=== PATIENT | female | born 1950 | race African-American/Black ===

== ENCOUNTER 2016-07-25 12:08 | Inpatient (IN) | payer OTHER ==
[~2016-07-25] VITALS: Ht 149.9 cm; Wt 106.3 kg
[2016-07-25 12:53] LABS: BASOPHIL % 0.5 % (0-2); PLATELET COUNT 196 x10^3mcL (130-400)
[2016-07-25 12:56] LABS: RED CELL DISTRIBUTION WIDTH 18.3 % (11.5-14.5)
[2016-07-25 13:10] LABS: ALBUMIN 3.7 g/dL (3.4-5.0); BILIRUBIN TOTAL 0.31 mg/dL (0.20-1.00); CALCIUM 8.1 mg/dL (8.5-10.1); CARBON DIOXIDE 26.6 mmol/L (21-32); CREATININE SERUM 3.9 mg/dL (0.6-1.0)
[2016-07-25 13:15] LABS: POTASSIUM SERUM 5.6 mmol/L (3.5-5.1)
[2016-07-25] MEDS ORDERED: TOPAMAX50 M1 PO (13:32)
[2016-07-25] MEDS ORDERED: DIPHENHYDRAMINE50 M3 PO (13:33)
[2016-07-25] MEDS ORDERED: NEURONTIN600 MG PO ×2 (13:34→13:35)
[2016-07-25] MEDS ORDERED: BUSPIRONE HCL30 MG PO (13:34)
[2016-07-25] MEDS ORDERED: TOPCARE 8 HOUR650 MG PO (13:36)
[2016-07-25] MEDS ORDERED: LANTUS SOLOS100 U/M1 SQ (13:37)
[2016-07-25] MEDS ORDERED: LISINOPRIL10 MG PO (13:37)
[2016-07-25] MEDS ORDERED: RELION HUMUL100 U/M2 SC ×3 (13:38→13:40)
[2016-07-25] MEDS ORDERED: SIMVASTATIN40 M1 PO (13:39)
[2016-07-25] MEDS ORDERED: FERROUS SULFAT325 M2 PO (13:39)
[2016-07-25] MEDS ORDERED: COLACE100 MG PO (13:39)
[2016-07-25] MEDS ORDERED: AKWA TEARS15 ML OU (13:41)
[2016-07-25 13:45] LABS: UA SPECIFIC GRAVITY 1.025 (1.005-1.035); microscopic required? YES; urine erythrocyte NEGATIVE (NEGATIVE)
[2016-07-25 13:55] LABS: AMPHETAMINE QUAL UR NONE DETECTED (NEG <=1000)
[2016-07-25 15:32] VITALS: BP 98/59
[2016-07-25 16:15] VITALS: BP 98/59
[2016-07-25 16:16] LABS: CHOLESTEROL/HDL RATIO 3.1; MAGNESIUM 2.2 mg/dL (1.8-2.4)
[2016-07-25 18:12] LABS: CALCIUM 9.5 mg/dL (8.5-10.1); CARBON DIOXIDE 25.1 mmol/L (21-32); CREATININE SERUM 3.5 mg/dL (0.6-1.0); POTASSIUM SERUM 5.2 mmol/L (3.5-5.1)
[2016-07-25 21:27] VITALS: BP 100/74
[2016-07-26 05:52] VITALS: BP 123/73
[2016-07-26 07:00] LABS: CALCIUM 8.2 mg/dL (8.5-10.1); CARBON DIOXIDE 30.4 mmol/L (21-32); CREATININE SERUM 1.9 mg/dL (0.6-1.0)
[2016-07-26 07:03] LABS: BASOPHIL % 0.3 % (0-2); PLATELET COUNT 160 x10^3mcL (130-400)
[2016-07-26 07:06] LABS: RED CELL DISTRIBUTION WIDTH 17.9 % (11.5-14.5)
[2016-07-26 07:07] LABS: rbc morphology (normal/abnorm) ABNORMAL (NORMAL)
[2016-07-26 07:30] VITALS: BP 112/66
[2016-07-26 17:00] VITALS: BP 140/67
[2016-07-26 20:56] VITALS: BP 113/57
[2016-07-27 09:40] VITALS: BP 133/70
[2016-07-27 13:41] VITALS: Ht 149.9 cm; Wt 106.3 kg
[2016-07-27 14:31] VITALS: BP 133/70
== END 2016-07-27 17:17 | disposition other institution (70) | DRG 189 ==
LOC: ED 12:08 → DU 13:31
PROVIDERS: Emergency Medicine; Internal Medicine Nephrology; ADMIT Internal Medicine
DX: J96.01 Acute respiratory failure with hypoxia (principal); N17.0 Acute kidney failure with tubular necrosis; G93.41 Metabolic encephalopathy; E87.4 Mixed disorder of acid-base balance; N39.0 Urinary tract infection, site not specified; I95.9 Hypotension, unspecified; E87.5 Hyperkalemia; I25.10 Atherosclerotic heart disease of native coronary artery without angina pectoris; I12.9 Hypertensive chronic kidney disease with stage 1 through stage 4 chronic kidney disease, or unspecified chronic kidney disease; N18.3 Chronic kidney disease, stage 3 (moderate); E11.65 Type 2 diabetes mellitus with hyperglycemia; E11.21 Type 2 diabetes mellitus with diabetic nephropathy; E66.9 Obesity, unspecified; Z79.4 Long term (current) use of insulin; Z87.891 Personal history of nicotine dependence
CPT/HCPCS: 36600; 80307; 82962; 83880; 94150; A9500; J1644; J1815; J1940; J2270; J2543; J2785; J3490; J7030; J7613; J7620; Q0092

== ENCOUNTER 2018-10-22 11:05 | Inpatient (IN) | payer OTHER ==
[~2018-10-22] VITALS: Ht 149.9 cm; Wt 110.2 kg
[~2018-10-22 11:05] MED LIST: AKWA TEARS15 ML OU; BUSPIRONE HCL30 MG PO; COLACE100 MG PO; DIPHENHYDRAMINE50 M3 PO; FERROUS SULFAT325 M2 PO; LANTUS SOLOS100 U/M1 SQ; LISINOPRIL10 MG PO; NEURONTIN600 MG PO; RELION HUMUL100 U/M2 SC; SIMVASTATIN40 M1 PO; TOPAMAX50 M1 PO; TOPCARE 8 HOUR650 MG PO
[2018-10-22 11:24] VITALS: Ht 149.9 cm; Wt 110.2 kg
--- NOTE | 2018-10-22 11:28 | NUR ---
PT BROUGHT IN BY [facility] FROM [facility] WITH C/O N/V/D X6 DAYS. AT BEDSIDE PT IS AAOX4. RESPS E/U. SKIN IS PINK AND WARM. PT PLACED ON MONITOR BED RAIL UP X1 FOR SAFETY. PT ORIENTED TO ROOM, USE OF CALL COLLIER, AND BED IN LOWEST POSITION. PT CALM AND COOPERATIVE. [facility] GUARDS AT BEDSIDE.
--- NOTE | 2018-10-22 12:09 | NUR ---
PT REPORTS IV SITE BURNING. AREA SURROUNDING SITE IS HARD. DR. LUI MADE AWARE. HE WILL TRY ANOTHER IV WITH ASSISTED ULTRASOUND.
--- NOTE | 2018-10-22 12:30 | NUR ---
DR. LUI AT BEDSIDE ATTEMPTING SECOND IV. PT CALM AND COOPERATIVE. RESPS E/U, SKIN IS PINK, WARM AND DRY.
--- NOTE | 2018-10-22 12:35 | NUR ---
IV LINE SUCCESSFUL. PT TOLERATED PROCEDURE WELL. RESPS E/U, SKIN PINK, WARM AND DRY.
[2018-10-22 12:58] LABS: BASOPHIL % 0.1 % (0-2); PLATELET COUNT 208 x10^3mcL (130-400); RED CELL DISTRIBUTION WIDTH 19.8 % (11.5-14.5)
[2018-10-22 13:02] LABS: BILIRUBIN TOTAL 0.25 mg/dL (0.20-1.00); CALCIUM 8.5 mg/dL (8.5-10.1); CARBON DIOXIDE 17.8 mmol/L (21-32); TOTAL PROTEIN, SERUM 7.4 g/dL (6.4-8.2)
[2018-10-22 13:04] LABS: ALBUMIN 3.1 g/dL (3.4-5.0); CREATININE SERUM 6.5 mg/dL (0.6-1.0)
[2018-10-22 13:05] LABS: CK-MB 1.9 ng/mL (0-3.6)
--- NOTE | 2018-10-22 13:06 | NUR ---
PER DR. SANIA GUTIERREZ TO GIVE FENTANYL.
--- NOTE | 2018-10-22 13:08 | NUR ---
MEDICATED PT PER MD ORDERS. PT VERBALIZES UNDERSTANDING OF MEDICATION. SEE EMAR FOR DETAILS.
--- NOTE | 2018-10-22 14:10 | NUR ---
PT PLACED IN [place] FOR LOW BP. PT AAOX4 WITH NO SIGNS OF DISTRESS.
--- NOTE | 2018-10-22 14:35 | NUR ---
PT REFUSED STRAIGHT CATH. PT ASSISTED WITH BEDPAN FOR URINE SAMPLE.
[2018-10-22] MEDS ORDERED: ALENDRONATE SOD70 M2 PO (14:41)
[2018-10-22] MEDS ORDERED: CALCIUM ACETAT667 M3 PO (14:42)
[2018-10-22] MEDS ORDERED: BUSPIRONE HCL10 MG PO (14:42)
[2018-10-22] MEDS ORDERED: THO50 PO (14:43)
[2018-10-22] MEDS ORDERED: ENFAMIL D-V400 IU/ML PO (14:44)
[2018-10-22] MEDS ORDERED: PENNSAID2 GM TOP (14:45)
[2018-10-22] MEDS ORDERED: COLACE100 MG PO (14:46)
[2018-10-22] MEDS ORDERED: GABAPENTIN600 M1 PO (14:47)
[2018-10-22] MEDS ORDERED: GABAPENTIN800 M1 PO (14:47)
[2018-10-22] MEDS ORDERED: ASSORTED FRUIT G4 GM PO (14:48)
[2018-10-22] MEDS ORDERED: LANTUS SOLOS100 U/M1 SQ (14:49)
[2018-10-22 14:50] LABS: microscopic required? YES; urine erythrocyte 1+ (NEGATIVE)
[2018-10-22] MEDS ORDERED: AFREZZA12 UNIT SQ (14:51)
[2018-10-22] MEDS ORDERED: AFREZZA12 UNIT IH (14:51)
[2018-10-22] MEDS ORDERED: RELION HUMUL100 U/M2 IJ ×3 (14:55→14:56)
[2018-10-22] MEDS ORDERED: LIDOCAINE PAIN1 EACH TOP (14:57)
[2018-10-22] MEDS ORDERED: ZESTRIL20 MG PO (14:58)
[2018-10-22] MEDS ORDERED: TOPROL XL25 MG PO (14:58)
--- NOTE | 2018-10-22 14:59 | NUR ---
HAND-OFF REPORT TO JOYCE WALTON FROM TELEMETRY TO ASSUME CARE.
[2018-10-22] MEDS ORDERED: LUBRICANT EYE1 EACH OS (15:00)
[2018-10-22] MEDS ORDERED: REPLENS1 CRE PO (15:01)
[2018-10-22] MEDS ORDERED: SIMVASTATIN40 M1 PO (15:02)
[2018-10-22] MEDS ORDERED: ZOLOFT100 MG PO (15:02)
--- NOTE | 2018-10-22 15:22 | NUR ---
RECEIVED PT VIA [facility] FROM E/D, ACCOMPANIED BY RN, TRANSPORTER, AND 2 [facility] GUARDS. PT A/A/O X 4, CALM, COOPERATIVE; WEARS GLASSES (NOT W/ PT). ON TELE # 5, HR 74, DENIES CHEST PAIN OR DISCOMFORT AT THIS TIME. SHAHID RADIAL AND PEDAL PULSES PRESENT, BLE +1 NON-PITTING EDEMA, CAP REFILL < 3 SECS, SCD BY BEDSIDE. LUNGS CTAB, CHEST RISING EVENLY, 2LNC, 99%, NO ACUTE RESPIRATORY DISTRESS NOTED. ABD SOFT, DISTENDED, HYPOACTIVE BOWEL SOUNDS X 4 QUADS, LAST BM 10/22/18, DIARRHEA. INCONTINENT OF BLADDER, DENIES DYSURIA. GENERALIZED WEAKNESS, ABLE TO AMBULATE W/ ASSIST; USES W/C, CANE, OR WALKER @ PRSION; FALL RISK PROTOCOL IN PLACE. C/O CHRONIC, CONSTANT ACHING PAIN TO BLE AND BACK 8/10 EXACERBATED BY MOVEMENT AND TWISTING, RELIEVED BY REST AND PAIN MEDICATIONS. IV SITE RAC 22G, CDI. ORIENTED PT TO ROOM, BED CONTROLS, CALL LIGHT SYSTEM. SIDE RAILS UP X 2, BED IN LOW POSITION. JOYCE JHA, BY BEDSIDE. PT HAS LOW BP READING OF 66/31, MAP 43, DENIES DIZZINESS AT THIS TIME.
--- NOTE | 2018-10-22 15:38 | NUR ---
DR FRASER MADE AWARE OF BP- 74/47 -MAP -56 ON RT ARM AND 74/28- MAP-43 ON LEFT ARM. PATIENT ASSESSED AND SHE DENIES DIZZINESS OR OTHER DISCOMFORT. RECEIVED ORDER FOR 250ML NS BOLUS. ORDER CARRIED OUT BY ATTENDING NURSE ABHIJEET. WILL CONTINUE TO MONITOR PATIENT AND MAINTAIN SAFETY.
--- NOTE | 2018-10-22 15:40 | NUR ---
DR FRASER NOTIFIED OF BP- 74/47 -MAP -56 ON RT ARM AND 74/28- MAP-43 ON LEFT ARM. PT DENIES ANY DIZZINESS, DISTRESS, OR SOB. RECEIVED ORDER FOR 250ML NS BOLUS. ORDER CARRIED OUT, WILL CONTINUE TO MONITOR PATIENT AND MAINTAIN SAFETY. CHARGE AWARE.
--- NOTE | 2018-10-22 16:07 | NUR ---
DR FRASER MADE AWARE ABOUT BP-66/31, MAP-43 AFTER 250ML NS BOLUS GIVEN. RECEIVED ORDER FOR ADDITIONAL 250ML NS BOLUS. ORDER CARRIED OUT. WILL CONTINUE TO MONITOR PATIENT AND MAINTAIN SAFETY.
--- NOTE | 2018-10-22 16:10 | NUR ---
DR FRASER NOTIFIED ABOUT BP-66/31, MAP-43 AFTER 250ML NS BOLUS GIVEN. RECEIVED ORDER FOR ADDITIONAL 250ML NS BOLUS. ORDER CARRIED OUT. WILL CONTINUE TO MONITOR PATIENT AND MAINTAIN SAFETY. NO DISTRESS NOTED AT TIME.
[2018-10-22 16:23] VITALS: BP 66/31
--- NOTE | 2018-10-22 16:56 | NUR ---
DR FRASER NOTIFIED OF BP 75/36, 49 MAP, 73 H, RR 16. NEW ORDER TO TRANSFER PT TO ICU, WILL CARRY OUT. NO DISTRESS NOTED
--- NOTE | 2018-10-22 17:00 | NUR ---
REPORTED TO DR FRASER PT'S LOW BP OF 75/36 W/ MAP 49 S/P 2ND BOLUS OF 250 ML NS, PT DENIES DIZZINESS AT THIS TIME; GAVE ORDER TO TRANSFER TO ICU; ORDER NOTED AND CARRIED OUT.
[2018-10-22 17:01] VITALS: BP 75/36
--- NOTE | 2018-10-22 17:20 | NUR ---
RECIEVED PT FROM [facility] ACCOMPANIED BY 3 RNS AND 2 POLICE OFFICERS. RECIEVED PT AAOX4. ABLE TO FOLLOW COMMANDS. RESPONDS TO VERBAL, TACTILE, AND PAINFUL STIMULUS. DENIES HEADACHE. PUPILS 3MM IN SIZE AND BRISK B/E. TRACHEA MIDLINE. NO JVD PRESENT. ON ROOM AIR. RESPS EVEN AND UNLABORED. DIM BREATH SOUNDS AUSCULTATED. SYMMETRICAL CHEST WALL EXPANSION NOTED. PALPABLE PULSES X4. CAP REFILL <3 SEC TO BUE AND BLE. SKIN IS WARM/DRY TO TOUCH, BROWN IN COLOR. +1 TRACE EDEMA NOTED TO BLE. PIV TO RAC INTACT, PORT PATENT, DRESSING CDI. VS: HR = 75, BP = 124/62 (73), RR = 13, O2 = 97%, TEMP = 97.5. ABD IS DISTENDED AND NONTENDER. ACTIVE BOWEL SOUNDS X4. NO BM AT THIS TIME. VOIDS FREELY VIA BEDPAN. URINE IS YELLOW IN COLOR. POOR OUTPUT NOTED. NO VAGINAL BLEEDING OR DISCHARGE NOTED. GENERALIZED WEAKNESS NOTED. JOINTS INTACT. NO CONTRACTURES. DRY SKIN NOTED TO RLE.
--- NOTE | 2018-10-22 17:20 | NUR ---
PT TRANSFERRED TO ICU BED 2, REPORT GIVEN TO JOYCE PAGE. ALL CARES AND ORDERS F/U AND CARE ENDORSED.
--- NOTE | 2018-10-22 19:00 | NUR ---
RECIEVED PT FROM AM NURSE. PT IS A/O x4. ON TELE #2, SR. HR IN THE 70S. DENIES ANY CHEST PAIN OR PRESSURE. PULSES ARE PRESENT. TRACE EDEMA ON BLE. LUNGS CLEAR IN ALL FEILDS. ON RA, DENIES ANY SOB. EQUAL CHEST RISE AND FALL. NO SIGN OF RESP DISTRESS. BOWEL SOUNDS PRESENT x4. DENIES ANY ABD PAIN OR DISTRESS. FOLY BAG IN PLACE. BELOW THE BLADDER, DRAINING BY GRAVITY. NO DEPENDENT LOOP OR KINK NOTED. CLOUDY, LIGHT YELLOW URINE NOTED IN ROMAN BAG. DENIES ANY PAIN AT THIS TIME. SALINE LOCKED ON RAC, INTACT AND CLEAN. CUFF ON L ANKLE, SKIN WNL AT SITE. [facility] OFFICER AT BEDSIDE. BED AT LOWEST SETTING. CALL LIGHT WITHIN REACH. WILL CONTIUE TO CÉSAR.
[2018-10-22 19:30] VITALS: BP 115/57
[2018-10-23] VITALS (7 sets, daily range): BP systolic 89–111; BP diastolic 38–56
--- NOTE | 2018-10-23 00:43 | NUR ---
PT IS RESTING IN BED. DENIES ANY LIANG, DIZZINESS, OR LIGHT HEADEDNESS. PT ON TELE #2, NSR. DENIES ANY CHEST PAIN OR PRESSURE. PULSES ARE PRESENT. TRACE BLE EDEMA. PT WAS O2 LEVELS STARTED TO DCREASE FROM MID 90S TO LOW 80S. INSTRUCT PT TO TAKE DEEP BREATHING AND SPO2 INCREASED TO LOW 90S-HIGH 80S. PLACED ON 1.5L NC, SPO2 INCREASED TO 98%. PT DENIES ANY SOB. EQUAL CHEST RISE AND FALL. NO SIGN OF RESP DISTRESS. IV ON RAC, INTACT AND PATENT. SODIUM BICARB RUNNING AT 75ML/HR. BOWEL SOUNDS PRESENT x4. DENIES ANY ABD PAIN OR DISTRESS. ROMAN BAG BELOW THE BLADDER, DRAINING BY GRAVITY. CLOUDY, LIGHT YELLOW URINE NOTED IN BAG. NO DEPENDENT LOOP OR KINK IN TUBING. BED IS AT LOWEST SETTING. CALL LIGHT WITHIN REACH. 2 [facility] OFFICERS AT BEDSIDE. WILL CONTIUE TO MONITOR.
--- NOTE | 2018-10-23 02:00 | NUR ---
PT B/P IS STARTING TO TREND LOW. B/P IS NOW 89/50 (62) HR 86. PT ON 1.5L NC SPO2 AT 99%. PT DENIES ANY LIANG OR DIZZINESS. CHARGE NURSE TANJA AT BEDSIDE. WILL CONTINUE TO MONITOR.
--- NOTE | 2018-10-23 02:44 | NUR ---
CALLED DR. FRASER FOR ORDERS FOR PATIENT IN REGARD TO LOW BLOOD PRESSURE. WAS MUMBLING, AND WAS UNABLE TO UNDERSTAND, ASKED TO CLARIFY TWICE AND IT APPEARED IF HE GOT FRUSTRATED AND HUNG UP ON ME.
--- NOTE | 2018-10-23 03:33 | NUR ---
Spoke to regarding low pressure. New order obtained to start Levophed if needed to keep SBP >90. New order noted and carried out. Will continue to monitor.
--- NOTE | 2018-10-23 05:46 | NUR ---
PT IS RESTING IN BED. IN NO DISTRESS. BED LINEN CHANGED, WIPED DOWN AND ROMAN CARE PROVIDED. PT ABLE TO ASSIST WITH MORNING ADLS. NEW GOWN WAS GIVEN. PT TOLERATED ACTIVIY WELL. NO DISTRESS NOTED. ON 1.5L NC. NO ACUTE EVENT OCCURED. BED IS AT LOWEST SETTING. CALL LIGHT WITHIN REACH. [facility] OFFICERS AT BEDSIDE. WILL ENDORSE TO AM NURSE.
[2018-10-23 06:01] LABS: ALBUMIN 2.4 g/dL (3.4-5.0); ALKALINE PHOSPHATASE 70 U/L (46-116); ALT/SGPT 32 U/L (14-59); AST/SGOT 36 U/L (15-37); BILIRUBIN TOTAL 0.17 mg/dL (0.20-1.00); CALCIUM 7.8 mg/dL (8.5-10.1); CARBON DIOXIDE 18.1 mmol/L (21-32); CHLORIDE SERUM 108 mmol/L (98-107); GFR1 11 mL/min; GLUCOSE SERUM 115 mg/dL (74-106); PHOSPHOROUS 5.9 mg/dL (2.5-4.9); POTASSIUM SERUM 4.2 mmol/L (3.5-5.1); SODIUM SERUM 139 mmol/L (136-145)
[2018-10-23 06:02] LABS: CREATININE SERUM 4.2 mg/dL (0.6-1.0)
--- NOTE | 2018-10-23 07:20 | NUR ---
RECEIVED PATIENT FROM QUALITY CONTROL OPERATOR NURSE. PATIENT IS RESTING WITH BOTH EYES CLOSED, AROUSABLE. TELE READING SR HR 72. ON 1.5L VIA NC, RESP E/U, O2 SAT 96%. ROMAN CATHETER NOTED, DRAINING PALE YELLOW URINE TO GRAVITY. [facility] PATIENT WITH 2 GUARDS AT BEDSIDE. FALL PREC IN PLACE. IV NOTED TO RAC, IVF INFUSING WELL ORDERED, NO S/S ERYTHEMA AT SITE. WILL CONTINUE PLAN OF CARE.
--- NOTE | 2018-10-23 09:44 | NUR ---
PATIENT HAD LARGE SOFT BM AT THIS TIME VIA BEDPAN.
--- NOTE | 2018-10-23 10:15 | NUR ---
DR FRASER AT BEDSIDE TO UPDATE PATIENT ON PLAN OF CARE. ALL QUESTIONS AND CONCERNS ADDRESSED AT THIS TIME.
--- NOTE | 2018-10-23 14:16 | NUR ---
PROVIDED PATIENT WITH OJ AT THIS TIME.
--- NOTE | 2018-10-23 14:29 | NUR ---
REPORT CALLED AND GIVEN TO RENE ON MST. PATIENT TO BE TRANSFERRED. AWAKE, ALERT AND ORIENTED. ON 1.5L NC, RESP E/U. NO C/O PAIN OR DISCOMFORT. [facility] GUARDS AT BEDSIDE.
--- NOTE | 2018-10-23 15:04 | NUR ---
PATIENT TRANSFERRED AT THIS TIME TO [facility]. ALL PERSONAL BELONGINGS TAKEN WITH PATIENT.
--- NOTE | 2018-10-23 15:05 | NUR ---
RECEIVED PATIENT FROM ICU VIA [facility] WITH JOYCE WONG. PATIENT IS A/OX4, NO COMPLAINTS OF PAIN AT THIS TIME. V/S STABLE. INSTRUCTED PATIENT FIELD CARE MANAGER LIGHT USE AND BED CONTROLS. ALSO SPOKE WITH PATIENT ABOUT PLAN OF CARE, PATIENT AGREES. CALL LIGHT IN REACH AT THIS TIME.
--- NOTE | 2018-10-23 18:57 | NUR ---
PATIENT IN BED AT THIS TIME. NO COMPLAINTS AT THIS TIME. WILL ENDORSE TO ONCOMING NURSE. GUARDS AT BEDSIDE. CALL COLLIER AT BEDSIDE.
--- NOTE | 2018-10-23 20:00 | NUR ---
PT IS A/O X4. PT IS ON TELE #4 NSR HR 70. PT DENIES ANY CHEST PAIN OR SOB AT THIS TIME. PT HAS EDEMA TO LLE. PT IS ON 1.5 NC O2, LUNG SOUNDS CLEAR BILATERALLY, DIMINSHED AT BASES. PT ABD DISTENDED AND SOFT, LAST BM WAS 10/23. PT HAS ROMAN CATH IN PLACE, COLOR IS LIGHT YELLOW. PT HAS GENERAL WEAKNESS, FALL PERCATUIONS IN PLACE. PT DENIES ANY PAIN AT THIS TIME. PT IV TO RAC CDI. WILL CONT TO MONITOR. CALL LIGHT WITHIN REACH.
--- NOTE | 2018-10-23 21:36 | NUR ---
PT C/O OF PAIN , GAVE NORCO X1 PER MD ORDER. WILL CONT TO MONITOR, CALL LIGHT WITHIN REACH.
--- NOTE | 2018-10-24 06:14 | NUR ---
PT SLEPT ON AND OFF THROUGH THE NIGHT. PT RECIEVED NORCO X2 FOR PAIN IN LLE AND BACK. PT IS ON TELE 4 NSR. PT DENIES ANY SOB OR CHEST PAIN AT THIS TIME. PT BREATHING EVEN AND UNLABORED. PT REMIANS ON 1.5 NC O2. PT ROMAN CATH DRAINING, YELLOW/CLEAR. PT HAS IV TO RAC INFUSING WELL, CDI. PT WAS COOPERATIVE WITH NURSING CARE. PT REPOSTIONED, BED AT LOWEST POSTION. NO ACUTE CHANGES THROUGH OUT THE NIGHT. WILL CONT TO MONITOR. WILL ENDORSE CARE TO DAY SHIFT NURSE.
[2018-10-24 06:38] VITALS: BP 100/52
--- NOTE | 2018-10-24 07:40 | NUR ---
RECEIVED PATIENT FROM JOYCE ALLEN. PATIENT SEATED IN BED, EATING BREAKFAST TRAY. STATES THAT SHE HAS BACK PAIN, LAST PRN NORCO DOSE WAS AT 0253. EXPLAINED TO PATIENT WE WILL DOUBLE CHECK HER BP FIRST AND WILL GIVE NEXT DOSE IF CLEARED. PATIENT VERBALIZES UNDERSTANDING. WILL ADMIN AM MEDS WELL AND WILL AWAIT DR FRASER FOR UPDATE. CALL LIGHT IN REACH, GUARDS AT BEDSIDE.
[2018-10-24 08:03] LABS: BILIRUBIN TOTAL 0.1 mg/dL (0.20-1.00); CALCIUM 8.7 mg/dL (8.5-10.1); CREATININE SERUM 1.7 mg/dL (0.6-1.0); MAGNESIUM 1.7 mg/dL (1.8-2.4); PHOSPHOROUS 4.3 mg/dL (2.5-4.9); POTASSIUM SERUM 4.9 mmol/L (3.5-5.1)
[2018-10-24 08:04] LABS: ALBUMIN 2.6 g/dL (3.4-5.0); TOTAL PROTEIN, SERUM 5.9 g/dL (6.4-8.2)
[2018-10-24 08:20] VITALS: BP 90/45
[2018-10-24 09:05] LABS: calcium (part of PTHIC) 7.7 mg/dL (8.7-10.3)
[2018-10-24 09:44] VITALS: BP 102/50
--- NOTE | 2018-10-24 10:10 | NUR ---
PATIENT IN BED AT THIS TIME. PATIENT WITH PT FOR EXERCISES. PATIENT ALSO ASSISTED WITH BM. BP RECHECKED AND HAS INCREASED TO 110/50. PRN NORCO NOW CLEARED FOR ADMINISTRATION. WILL CONTINUE TO FOLLOW UP WITH PATIENT. GUARDS AT BEDSIDE, CALL LIGHT IN REACH.
[2018-10-24 11:34] LABS: PLATELET COUNT 173 x10^3mcL (130-400)
[2018-10-24 11:35] LABS: BAND NEUTROPHIL 0 % (0-10); MONOCYTE 4 % (0-7); SEGMENTED NEUTROPHILS 87 % (37-75)
[2018-10-24 11:36] LABS: ATYPICAL LYMPH 0 %; BASOPHIL 0 % (0-2); METAMYELOCTE 0 % (0-2); MYELOCYTE 0 % (0-2)
[2018-10-24 11:37] LABS: rbc morphology (normal/abnorm) ABNORMAL (NORMAL)
--- NOTE | 2018-10-24 12:38 | NUR ---
DR FRASER IN TO SPEAK WITH PATIENT. STATES PATIENT KIDNEY FUNCTION IS IMPROVING BUT WILL NEED TO STAY ADDITIONAL DAY DUE TO CONTINUING HYPOTENSION. PATIENT VERBALIZES UNDERSTANDING. CALL LIGHT IN REACH AT THIS TIME, GUARDS AT BEDSIDE.
[2018-10-24 12:50] VITALS: BP 119/38
[2018-10-24 16:57] VITALS: BP 117/51
--- NOTE | 2018-10-24 18:46 | NUR ---
PATIENT IN ROOM RESTING. NO COMPLAINTS OF PAIN AT THIS TIME. WILL ENDORSE TO ONCOMING NURSE. GUARDS AT BEDSIDE.
--- NOTE | 2018-10-24 19:08 | NUR ---
PT WANTING TO AMBULATE AT THIS TIME. ASSISTED PT UP TO FWW, AMBULATING HALLS WITH SON, SLOW AND STEADY GAIT. NO ACUTE DISTRESS OBSERVED. WILL CONTINUE TO MONITOR
--- NOTE | 2018-10-24 19:15 | NUR ---
RECEIVED PT LAYING IN BED, NO ACUTE DISTRESS OBSERVED, C/O 2/10 PAIN TO BACK, WILL MEDICATE PRN. AA/OX4, ABLE TO MAKE NEEDS KNOWN, SPEECH CLEAR AND APPROPRIATE. FLUCTUATES BETWEEN NSR AND SINUS [place], HR 58-61, DENIES CP. PULSES PRESENT AND EQUAL THROUGHOUT, NO EDEMA NOTED, PT ON HEP SQ THERAPY. BREATHING ON RA, EVEN AND UNLABORED, DENIES SOB OR DYSPNEA, O2 SAT 96% LUNGS CTA. ABD ROUND AND SOFT WITH HYPERACTIVE BOWEL SOUNDS, DENIES N/V, ADMITS TO EPISODES OF DIARRHEA EARLIER TODAY. ROMAN CATH IN PLACE, DRAINING CLEAR YELLOW URINE TO GRAVITY. GENERALIZED WEAKNESS, UP WITH P.T. MOD ASSIST, FWW AT BASELINE. IV TO LFA IN PLACE, DRY, PATENT, INTACT, AND INFUSING IVF WELL, NO PAIN, REDNESS OR SWELLING NOTED. COMFORT AND SAFETY MEASURES IN PLACE. ALL NEEDS ASSESSED AND ATTENDED TO. CALL LIGHT WITHIN REACH. WILL CONTINUE TO MONITOR
[2018-10-24 21:12] VITALS: BP 114/54
--- NOTE | 2018-10-25 05:12 | NUR ---
NO SIGNIFICANT CHANGES TO REPORT, PT COMPLIED WITH NURSING CARE THROUGHOUT THE SHIFT WITH NO ACUTE EVENTS OVERNIGHT. NO ACUTE DISTRESS OBSERVED AT THIS TIME, PT LAYING IN BED, BREATHING EVEN AND UNLABORED. COMFORT AND SAFETY MEASURES MAINTAINED. ALL NEEDS ASSESSED AND ATTENDED TO. CALL LIGHT WITHIN REACH. WILL CONTINUE TO MONITOR AND ENDORSE CARE TO DAY SHIFT NURSE
[2018-10-25 05:51] VITALS: BP 129/64
[2018-10-25 06:56] LABS: BASOPHIL % 0.6 % (0-2); PLATELET COUNT 267 x10^3mcL (130-400)
--- NOTE | 2018-10-25 07:46 | NUR ---
RECEIVED PATIENT FROM JOYCE GUEVARA. PATIENT IN BED AT THIS TIME, NO COMPLAINTS. BP HAS IMPROVED SBP TO 125. WILL CONTINUE TO MONITOR AND WAIT FOR DR FRASER TO ARRIVE TO SPEAK WITH PATIENT. CALL LIGHT IN REACH.
[2018-10-25 07:49] LABS: BILIRUBIN TOTAL 0.26 mg/dL (0.20-1.00); CARBON DIOXIDE 24.4 mmol/L (21-32); CREATININE SERUM 1.3 mg/dL (0.6-1.0); MAGNESIUM 1.5 mg/dL (1.8-2.4); PHOSPHOROUS 2.9 mg/dL (2.5-4.9); POTASSIUM SERUM 4.4 mmol/L (3.5-5.1); TOTAL PROTEIN, SERUM 6.8 g/dL (6.4-8.2)
[2018-10-25 08:02] LABS: ALBUMIN 2.7 g/dL (3.4-5.0); RED CELL DISTRIBUTION WIDTH 19.8 % (11.5-14.5)
[2018-10-25 08:18] VITALS: BP 124/56
[2018-10-25 14:38] VITALS: BP 119/59
--- NOTE | 2018-10-25 14:51 | NUR ---
PATIENT IN BED. DR FRASER IN TO SPEAK WITH PATIENT ABOUT DISCHARGE BACK TO [facility] TODAY. WILL AWAIT FOR DISCHARGE ORDERS TO BE COMPLETE AND WILL DISCUSS WITH PATIENT ONCE DISCHARGE PACKET IS COMPLETE. CALL LIGHT IN REACH.
[2018-10-25 15:24] VITALS: BP 119/59
--- NOTE | 2018-10-25 16:25 | NUR ---
DISCHARGE INSTRUCTIONS GIVEN TO PATIENT. PACKET REVIEWED WITH PATIENT, ALL QUESTIONS ANSWERED. PACKET GIVEN TO GUARDS AT BEDSIDE. ROMAN CATHETER REMOVED, PATIENT TOLERATED. IV ACCESS AND TELEMETRY UNIT WILL BE REMOVED ONCE [facility] TRANSPORT ARRIVES.
--- NOTE | 2018-10-25 17:46 | NUR ---
PATIENT IN BED, WITH NO FURTHER COMPLAINTS, CONSUMING DINNER TRAY. AWAITING TRANSPORT TO ARRIVE. IV CATHETER REMAINS, TELEMETRY UNIT REMAINS, WILL REMOVE ONCE TRANSPORT ARRIVES.
--- NOTE | 2018-10-25 18:45 | NUR ---
PATIENT TRANSPORT PRESENT. IV CATHETER REMOVED AND INTACT. TELEMETRY BOX RETURNED TO [facility]. PATIENT WITH BELONGINGS, PACKET WITH GUARDS, SIGNATURES ACQUIRED. PATIENT ESCORTED VIA WHEELCHAIR DOWN TO TRANSPORT VAN WITH [employer] OFFICERS.
== END 2018-10-25 18:33 | disposition other institution (70) | DRG 683 ==
LOC: ED 11:05 → IC 14:12 → DU 14:12 → IC 17:17 → MU 17:42 → IC 17:44 → DU 10-23 15:16
PROVIDERS: Emergency Medicine; Internal Medicine; ADMIT Internal Medicine
PROC: 05HY33Z Insertion of Infusion Device into Upper Vein, Percutaneous Approach (ICD-10-PCS; principal; 2018-10-22)
DX: N17.9 Acute kidney failure, unspecified (principal); Z68.42 Body mass index [BMI] 45.0-49.9, adult; E87.2 Acidosis; I95.9 Hypotension, unspecified; N18.3 Chronic kidney disease, stage 3 (moderate); I12.9 Hypertensive chronic kidney disease with stage 1 through stage 4 chronic kidney disease, or unspecified chronic kidney disease; E11.22 Type 2 diabetes mellitus with diabetic chronic kidney disease; E11.65 Type 2 diabetes mellitus with hyperglycemia; E66.9 Obesity, unspecified; E86.0 Dehydration; G89.29 Other chronic pain; M54.9 Dorsalgia, unspecified; F32.9 Major depressive disorder, single episode, unspecified; M54.30 Sciatica, unspecified side; J45.909 Unspecified asthma, uncomplicated; M19.90 Unspecified osteoarthritis, unspecified site; D63.8 Anemia in other chronic diseases classified elsewhere; I25.10 Atherosclerotic heart disease of native coronary artery without angina pectoris; Z79.84 Long term (current) use of oral hypoglycemic drugs; Z90.710 Acquired absence of both cervix and uterus; Z98.42 Cataract extraction status, left eye; Z98.41 Cataract extraction status, right eye; Z91.048 Other nonmedicinal substance allergy status
CPT/HCPCS: 82962; 94150; 97530-GP; G0378; J1644; J1815; J2543; J2550; J3010; J3490; J7030; J7050; Q0092; Q0161